=== PATIENT | male | born 1975 | race Caucasian/White ===

== ENCOUNTER 2024-02-17 09:15 | Emergency (ER) | payer BC, SELFPAY ==
--- NOTE | 2024-02-17 09:25 | ED.WOUNDLAC ---
HPI - Wound/Laceration General Chief Complaint: Wound/Laceration Stated Complaint: Left Leg Wound Time Seen by Provider: 02/17/24 09:20 Source: patient Mode of arrival: ambulatory Limitations: no limitations History of Present Illness HPI narrative: Harjinder is a 48-year-old male patient presenting to the clinic today with complaints of left leg/calf wound x3 weeks. Is concerned that he may have received an insect bite weeks ago. He reports the wound started itching at 1st and has gradually gotten worse. Has increase in pain, redness, and swelling to the left calf. Denies any fever or chills. Related Data Allergies Allergy/AdvReac Type Severity Reaction Status Date / Time No Known Allergies Allergy Verified 02/17/24 09:42 Review of Systems Review of Systems: Pertinent positives per HPI. Patient denies any fever, chills, rash, headache, visual changes, dizziness, cough, runny nose, sore throat, shortness of breath, chest pain, palpitations, nausea, vomiting, diarrhea, constipation, abdominal pain, or any urinary issues. PMFSH Comments At the time of my signature, I reviewed and agree with the nursing past medical, surgical, social, and family history. There is no relevant family history pertinent to the patient complaint. Exam Narrative: General: Well-developed, well nourished, in no apparent distress Head: Normocephalic, atraumatic. Cardio: Regular rate and rhythm, s1 and s2 normal, no murmur appreciated. Resp: Clear to auscultation bilaterally, no rhonchi, rales, wheezing or rubs. Integumentary: [place], warm, and dry, open/excoriated wound to the left posterior calf with redness and induration measuring 7 cm x 7 cm. Does have a small open area above this area that was caused by tape and that area is measuring 2 cm x 1 cm. States that there is slight itching to the wound with pain. no obvious drainage at this time. Wound culture was obtained Course Course Emergency Course: Portions of this record may have been created with voice recognition software. Level of Care: Express Care Visit Vital Signs Vital signs: Vital signs reviewed MDM - Wound/Laceration MDM Narrative Medical decision making narrative: At the time of visit patient is resting comfortably on the exam table. Patient appears to be nontoxic. Labs: Wound culture obtained and sent to the lab. Plan: I suspect patient has a skin infection to the left posterior calf. Prescription for Bactrim and mupirocin cream was sent to pharmacy. Supportive measures were discussed with the patient and they voiced understanding discharge instructions and agrees to treatment plan. Return precautions reviewed Differential Diagnosis Differential diagnosis: Likely abscess and other (Wound infection, insect bite) Discharge Plan Discharge Clinical Impression: Bacterial infection of skin Patient Disposition: Home, Self-Care Condition: Stable Instructions: Antibiotic Form, Wound Infection (ED) Additional Instructions: Wound culture was obtained in the clinic today. May keep covered if draining Wash wound daily with soap and water Keep wound clean and dry May take Tylenol/Motrin as needed for pain or fever. Watch for signs and symptoms of worsening infection-fever, increase redness, streaking, swelling, purulent discharge, or increase in pain. Follow up with your PCP in 3-4 days for a wound recheck Prescriptions: New sulfamethoxazole-trimethoprim [Bactrim DS] 800-160 mg tablet 1 tablet PO Q12H 7 Days Qty: 14 0RF mupirocin 2 % ointment 1 applic topical BID 7 Days Qty: 22 0RF Follow-up/Referrals: PHYSICIAN,[employer]EL[employer] [Primary Care Provider] - Time of Disposition: 09:51 Quality NIHSS Nursing Documentation ED NIHSS nursing documentation: reviewed/agree
[2024-02-17 09:36] VITALS: BP 111/92; PULSE 84; RESP 20; TEMP 36.9; O2SAT 99
== END 2024-02-17 10:12 | disposition home or self-care (01) ==
PROVIDERS: Emergency Provider Nurse Practitioner Family
DX: L08.9 Local infection of the skin and subcutaneous tissue, unspecified (principal); B96.89 Other specified bacterial agents as the cause of diseases classified elsewhere
CPT/HCPCS: 87070; 87075; 87205; 99203; G0463